=== PATIENT | male | born 1950 | race Caucasian/White ===

== ENCOUNTER 2025-02-14 09:00 | Outpatient (RCR) | payer BC, SELFPAY ==
--- NOTE | 2024-09-21 12:27 | ONC.NURNOTE ---
[facility] will need [facility] of one additional week they are able to ship capecitabine out today or tomorrow so he will have it when starts XRT on Wednesday Teaching planned for Wednesday with lab work next appts set up for lab and Jesus Dayo will see the dietitian at [facility]- they placed a referral
[2024-09-26 12:15] LABS: Hematocrit* 33.5 % (37.0-53.0); Hemoglobin* 11.4 gm/dL (13.5-17.5); Immature Granulocytes Abs Auto 0.12 K/uL (0.00-0.30); Immature Granulocytes Pct Auto 1.9 %; Lymphocytes Absolute Auto 1.55 K/uL (0.90-2.90); Mean Corpuscular HGB Conc 34 gm/dL (32-36); Mean Corpuscular Hemoglobin 34 pg (26-34); Mean Corpuscular Volume 99 fL (80-100); RDW Coefficient of Variation % 13.7 % (11.5-15.5); Red Blood Count* 3.39 m/uL (4.30-5.90); White Blood Count* 6.27 K/uL (4.50-11.00)
[2024-09-26 12:16] LABS: Slide Review Reflex No
[2024-09-26 12:32] LABS: Albumin* 3.5 g/dL (3.3-5.0); Chloride* 93 mmol/L (96-114); Potassium* 4.1 mmol/L (3.6-5.1); Sodium* 126 mmol/L (135-149)
[2024-09-26 12:35] LABS: Alkaline Phosphatase* 85 U/L (40-150); Anion Gap 7 mEq/L (7-15); Bilirubin Total* 0.7 mg/dL (0.1-1.5); Blood Urea Nitrogen* 11 mg/dL (7-30); Calcium* 8.6 mg/dL (8.4-10.6); Carbon Dioxide* 26 mmol/L (20-32); Creatinine* 0.7 mg/dL (0.5-1.5); Est. Creatinine Clearance* 68.57; Estimated Glomerular Filt Rate 97 ml/min; Glucose* 185 mg/dL (60-115); Total Protein* 7.2 g/dL (6.0-8.3)
[2024-09-26 12:36] LABS: Alanine Aminotransferase* 17 U/L (4-50); Aspartate Amino Transferase* 31 U/L (12-35)
--- NOTE | 2024-09-26 14:20 | ONC.NURNOTE ---
teaching with patient and María- 60 min considerable time spend and reviewed possible side effects, home management of diarrhea, mouth sores and hand/foot erythema ER with fever over 100.4, calling with increase in loose watery stools, 3 or more/day, imodium dosing, safe handling and disposal, information on smoking cessation discussed- handouts given- patient smokes about 20 cigarettes a day- but thinks he can start decreasing # smoked to start with 18 max/day also discussed alcohol intake- of 6 beers/day average- to try NA beer instead during his treatment- discussed impact on his liver enzymes patient enjoys a hot tub and was also advised against it until he has completed treatment and his rectal area is well healed. Patient took his first dose here, after eating a snack first due to late start- his 2nd dose will be about 10 hours later at 11 pm tonite, followed by 3rd dose around 9 am reviewed dosing schedule with and patient- using teachback method questions addressed- MAGDALENA consents reviewed and signed
[2024-09-27 12:25] LABS: Carcinoembryonic Antigen 11.8 ng/mL
--- NOTE | 2024-09-28 10:05 | ONC.NURNOTE ---
Spoke to pt's María to follow up starting the Capecitabine. She states it is going well and pt has no side effects at this time. He is taking the capecitabine at 0730 prior to radiation and at 1930. Instructed them to call [facility] if they have any questions or concerns. She verbalized understanding of plan of care.
[2024-10-02 09:57] LABS: Sodium* 129 mmol/L (135-149)
--- NOTE | 2024-10-02 14:09 | ONC.NURNOTE ---
Sodium results called to /pt he is taking his salt tablets TID reviewed capecitabine tolerance no diarrhea no hand/feet redness, and no mouth sores doing his best to get enough liquids in with his wifes encouragement has reduced beer intake by 4 cans /day making a conscious effort to reduce the # of cigarettes daily has appts for next week
--- NOTE | 2024-10-05 13:52 | ONC.NURNOTE ---
capecitabine symptom check in reports 1 episode of looser stool last night, nothing further today no redness, pain in plantar bae area no mouth sores denies any questions
[2024-10-11 10:27] LABS: Hematocrit* 29.8 % (37.0-53.0); Hemoglobin* 10.0 gm/dL (13.5-17.5); Immature Granulocytes Pct Auto 1.1 %; Mean Corpuscular HGB Conc 34 gm/dL (32-36); Mean Corpuscular Hemoglobin 35 pg (26-34); Mean Corpuscular Volume 103 fL (80-100); RDW Coefficient of Variation % 15.5 % (11.5-15.5); Red Blood Count* 2.89 m/uL (4.30-5.90); White Blood Count* 3.51 K/uL (4.50-11.00)
[2024-10-11 10:39] LABS: Immature Granulocytes Abs Auto 0.00 K/uL (0.00-0.30); Lymphocytes Absolute Auto 1.00 K/uL (0.90-2.90)
[2024-10-11 10:40] LABS: Slide Review Reflex No
[2024-10-11 10:41] LABS: Albumin* 3.3 g/dL (3.3-5.0); Chloride* 98 mmol/L (96-114); Potassium* 4.1 mmol/L (3.6-5.1); Sodium* 130 mmol/L (135-149)
[2024-10-11 10:44] LABS: Alanine Aminotransferase* 13 U/L (4-50); Alkaline Phosphatase* 72 U/L (40-150); Anion Gap 5 mEq/L (7-15); Aspartate Amino Transferase* 26 U/L (12-35); Bilirubin Total* 0.6 mg/dL (0.1-1.5); Blood Urea Nitrogen* 16 mg/dL (7-30); Calcium* 8.5 mg/dL (8.4-10.6); Carbon Dioxide* 27 mmol/L (20-32); Creatinine* 0.7 mg/dL (0.5-1.5); Est. Creatinine Clearance* 68.57; Estimated Glomerular Filt Rate 97 ml/min; Glucose* 108 mg/dL (60-115); Total Protein* 6.9 g/dL (6.0-8.3)
[2024-10-26 09:02] LABS: Hematocrit* 29.7 % (37.0-53.0); Hemoglobin* 9.9 gm/dL (13.5-17.5); Immature Granulocytes Pct Auto 1.3 %; Mean Corpuscular HGB Conc 33 gm/dL (32-36); Mean Corpuscular Hemoglobin 36 pg (26-34); Mean Corpuscular Volume 107 fL (80-100); RDW Coefficient of Variation % 18.7 % (11.5-15.5); Red Blood Count* 2.79 m/uL (4.30-5.90); White Blood Count* 2.97 K/uL (4.50-11.00)
[2024-10-26 09:32] LABS: Albumin* 3.6 g/dL (3.3-5.0); Chloride* 103 mmol/L (96-114); Potassium* 4.2 mmol/L (3.6-5.1); Sodium* 136 mmol/L (135-149)
[2024-10-26 09:35] LABS: Alanine Aminotransferase* 14 U/L (4-50); Alkaline Phosphatase* 64 U/L (40-150); Anion Gap 8 mEq/L (7-15); Aspartate Amino Transferase* 31 U/L (12-35); Bilirubin Total* 0.6 mg/dL (0.1-1.5); Blood Urea Nitrogen* 15 mg/dL (7-30); Calcium* 8.7 mg/dL (8.4-10.6); Carbon Dioxide* 25 mmol/L (20-32); Creatinine* 0.7 mg/dL (0.5-1.5); Est. Creatinine Clearance* 67.83; Estimated Glomerular Filt Rate 97 ml/min; Glucose* 112 mg/dL (60-115); Total Protein* 7.2 g/dL (6.0-8.3)
[2024-10-26 09:36] LABS: Immature Granulocytes Abs Auto 0.00 K/uL (0.00-0.30); Lymphocytes Absolute Auto 0.70 K/uL (0.90-2.90); Slide Review Reflex No
[2024-11-15 08:48] LABS: Hematocrit* 32.6 % (37.0-53.0); Hemoglobin* 10.9 gm/dL (13.5-17.5); Immature Granulocytes Pct Auto 1.0 %; Mean Corpuscular HGB Conc 33 gm/dL (32-36); Mean Corpuscular Hemoglobin 36 pg (26-34); Mean Corpuscular Volume 109 fL (80-100); RDW Coefficient of Variation % 18.1 % (11.5-15.5); Red Blood Count* 3.00 m/uL (4.30-5.90); White Blood Count* 3.13 K/uL (4.50-11.00)
[2024-11-15 08:53] LABS: Immature Granulocytes Abs Auto 0.00 K/uL (0.00-0.30); Lymphocytes Absolute Auto 0.70 K/uL (0.90-2.90); Slide Review Reflex No
[2024-11-15 09:01] LABS: Albumin* 3.7 g/dL (3.3-5.0); Chloride* 101 mmol/L (96-114); Potassium* 4.1 mmol/L (3.6-5.1); Sodium* 134 mmol/L (135-149)
[2024-11-15 09:04] LABS: Alanine Aminotransferase* 15 U/L (4-50); Alkaline Phosphatase* 66 U/L (40-150); Anion Gap 5 mEq/L (7-15); Aspartate Amino Transferase* 30 U/L (12-35); Bilirubin Total* 0.7 mg/dL (0.1-1.5); Blood Urea Nitrogen* 10 mg/dL (7-30); Calcium* 8.7 mg/dL (8.4-10.6); Carbon Dioxide* 28 mmol/L (20-32); Creatinine* 0.8 mg/dL (0.5-1.5); Est. Creatinine Clearance* 66.24; Estimated Glomerular Filt Rate 93 ml/min; Glucose* 162 mg/dL (60-115); Total Protein* 7.4 g/dL (6.0-8.3)
[2024-11-15 09:11] VITALS: BP 123/67; PULSE 66; RESP 16; TEMP 36.7; O2SAT 96
--- NOTE | 2024-11-15 09:30 | CRLHL7_ITS ---
For Patients: As a result of the Century Cures Act, medical imaging exams and procedure reports are released immediately into your electronic medical record. You may view this report before your referring provider. If you have questions, please contact your health care provider. Indication: PICC line placement confirmation Comparison: None available. Technique: Single AP view chest Findings: Satisfactory positioning of right-sided PICC line with the tip just at the cavoatrial junction. Diffusely increased interstitial markings commensurate with pulmonary edema with basilar atelectasis and/or parenchymal scar. No pneumothorax or pleural effusion. The cardiomediastinal silhouette is within normal limits. The bony thorax is grossly intact. Impression: 1. Satisfactory position of right-sided PICC line with the tip just at the cavoatrial junction. 2. Diffusely increased interstitial markings commensurate with pulmonary edema. Dictated by Shayne Law MD @ 11/15/2024 10:13:25 AM (Electronically Signed)
[2024-11-15 10:40] VITALS: BP 124/66; PULSE 58; RESP 16; TEMP 36.6; O2SAT 96
[2024-11-15] MEDS: dexAMETHasone 20 MG in 0.9 % SODIUM CHLORIDE 100 ml 100 ML 408 MG IVPB (11:05)
[2024-11-15] MEDS: 5 % DEXTROSE 250 ML IV (14:16)
[2024-11-15] MEDS: SODIUM CHLORIDE 0.9 % (FLUSH) 10 ML SYRINGE IVF (14:17)
--- NOTE | 2024-11-16 13:18 | ONC.NURNOTE ---
Chemo follow up call; spoke with María reports no nausea reports heart burn last night, but nothing further today taking capecitabine as prescribed has not taken any home antiemetics reviewed need to start prochlorperzine today, tomorrow and if needed on Wednesday per schedule on given eating meals and drinking fluids taking dexamethasone as directed today reports facial flushing and no temps- flushing may be from dexamethasone
[2024-11-22 13:07] LABS: Hematocrit* 28.2 % (37.0-53.0); Hemoglobin* 9.6 gm/dL (13.5-17.5); Immature Granulocytes Pct Auto 0.8 %; Lymphocytes Absolute Auto 0.80 K/uL (0.90-2.90); Mean Corpuscular HGB Conc 34 gm/dL (32-36); Mean Corpuscular Hemoglobin 37 pg (26-34); Mean Corpuscular Volume 108 fL (80-100); RDW Coefficient of Variation % 17.0 % (11.5-15.5); Red Blood Count* 2.61 m/uL (4.30-5.90); White Blood Count* 3.91 K/uL (4.50-11.00)
[2024-11-22 13:08] LABS: Immature Granulocytes Abs Auto 0.00 K/uL (0.00-0.30)
[2024-11-22 13:09] LABS: Slide Review Reflex No
[2024-12-05 08:31] LABS: Hematocrit* 28.6 % (37.0-53.0); Hemoglobin* 9.7 gm/dL (13.5-17.5); Immature Granulocytes Pct Auto 0.3 %; Mean Corpuscular HGB Conc 34 gm/dL (32-36); Mean Corpuscular Hemoglobin 37 pg (26-34); Mean Corpuscular Volume 109 fL (80-100); RDW Coefficient of Variation % 17.5 % (11.5-15.5); Red Blood Count* 2.62 m/uL (4.30-5.90); White Blood Count* 2.94 K/uL (4.50-11.00)
[2024-12-05 08:32] LABS: Immature Granulocytes Abs Auto 0.00 K/uL (0.00-0.30); Lymphocytes Absolute Auto 0.60 K/uL (0.90-2.90); Slide Review Reflex No
[2024-12-05] MEDS: SODIUM CHLORIDE 0.9 % (FLUSH) 10 ML SYRINGE IVF ×3 (08:32→13:05)
[2024-12-05 08:44] LABS: Albumin* 3.6 g/dL (3.3-5.0); Chloride* 99 mmol/L (96-114)
[2024-12-05 08:45] LABS: Potassium* 3.9 mmol/L (3.6-5.1); Sodium* 131 mmol/L (135-149)
[2024-12-05 08:47] LABS: Alanine Aminotransferase* 16 U/L (4-50); Anion Gap 5 mEq/L (7-15); Aspartate Amino Transferase* 30 U/L (12-35); Blood Urea Nitrogen* 9 mg/dL (7-30); Carbon Dioxide* 27 mmol/L (20-32); Creatinine* 0.6 mg/dL (0.5-1.5); Est. Creatinine Clearance* 67.74; Estimated Glomerular Filt Rate 101 ml/min
[2024-12-05 08:48] LABS: Alkaline Phosphatase* 54 U/L (40-150); Bilirubin Total* 0.6 mg/dL (0.1-1.5); Calcium* 8.7 mg/dL (8.4-10.6); Glucose* 133 mg/dL (60-115); Total Protein* 6.5 g/dL (6.0-8.3)
[2024-12-05] MEDS: 5 % DEXTROSE 250 ML IV (10:17)
[2024-12-05] MEDS: dexAMETHasone 20 MG in 0.9 % SODIUM CHLORIDE 100 ml 100 ML 408 MG IVPB (10:25)
[2024-12-06 18:42] LABS: Carcinoembryonic Antigen 9.6 ng/mL
[2024-12-12] MEDS: SODIUM CHLORIDE 0.9 % (FLUSH) 10 ML SYRINGE IVF (09:04)
[2024-12-26] MEDS: SODIUM CHLORIDE 0.9 % (FLUSH) 10 ML SYRINGE IVF ×2 (08:45→13:48)
[2024-12-26 09:16] LABS: Hematocrit* 28.0 % (37.0-53.0); Hemoglobin* 9.3 gm/dL (13.5-17.5); Immature Granulocytes Pct Auto 1.3 %; Mean Corpuscular HGB Conc 33 gm/dL (32-36); Mean Corpuscular Hemoglobin 38 pg (26-34); Mean Corpuscular Volume 115 fL (80-100); RDW Coefficient of Variation % 17.6 % (11.5-15.5); Red Blood Count* 2.44 m/uL (4.30-5.90); White Blood Count* 3.20 K/uL (4.50-11.00)
[2024-12-26 09:18] LABS: Immature Granulocytes Abs Auto 0.00 K/uL (0.00-0.30); Lymphocytes Absolute Auto 0.60 K/uL (0.90-2.90)
[2024-12-26 09:19] LABS: Slide Review Reflex No
[2024-12-26 09:26] LABS: Chloride* 102 mmol/L (96-114)
[2024-12-26 09:27] LABS: Albumin* 3.3 g/dL (3.3-5.0); Potassium* 4.0 mmol/L (3.6-5.1); Sodium* 133 mmol/L (135-149)
[2024-12-26 09:29] LABS: Alanine Aminotransferase* 17 U/L (4-50); Anion Gap 4 mEq/L (7-15); Aspartate Amino Transferase* 33 U/L (12-35); Blood Urea Nitrogen* 11 mg/dL (7-30); Carbon Dioxide* 27 mmol/L (20-32); Creatinine* 0.8 mg/dL (0.5-1.5); Est. Creatinine Clearance* 71.13; Estimated Glomerular Filt Rate 93 ml/min
[2024-12-26 09:30] LABS: Alkaline Phosphatase* 58 U/L (40-150); Bilirubin Total* 0.5 mg/dL (0.1-1.5); Calcium* 8.7 mg/dL (8.4-10.6); Glucose* 117 mg/dL (60-115); Total Protein* 6.6 g/dL (6.0-8.3)
[2024-12-26] MEDS: 5 % DEXTROSE 250 ML IV (11:09)
[2024-12-26] MEDS: dexAMETHasone 20 MG in 0.9 % SODIUM CHLORIDE 100 ml 100 ML 408 MG IVPB (11:12)
[2025-01-02 09:09] VITALS: BP 108/63; PULSE 82; RESP 16; TEMP 36.6; O2SAT 94
[2025-01-15 08:01] LABS: Hematocrit* 28.8 % (37.0-53.0); Hemoglobin* 9.8 gm/dL (13.5-17.5); Immature Granulocytes Pct Auto 0.8 %; Mean Corpuscular HGB Conc 34 gm/dL (32-36); Mean Corpuscular Hemoglobin 39 pg (26-34); Mean Corpuscular Volume 115 fL (80-100); RDW Coefficient of Variation % 17.4 % (11.5-15.5); Red Blood Count* 2.50 m/uL (4.30-5.90); White Blood Count* 3.53 K/uL (4.50-11.00)
[2025-01-15 08:03] LABS: Immature Granulocytes Abs Auto 0.00 K/uL (0.00-0.30); Lymphocytes Absolute Auto 0.70 K/uL (0.90-2.90); Slide Review Reflex No
[2025-01-15 08:15] LABS: Albumin* 3.4 g/dL (3.3-5.0); Chloride* 101 mmol/L (96-114); Potassium* 4.0 mmol/L (3.6-5.1); Sodium* 131 mmol/L (135-149)
[2025-01-15 08:18] LABS: Alanine Aminotransferase* 18 U/L (4-50); Alkaline Phosphatase* 56 U/L (40-150); Anion Gap 3 mEq/L (7-15); Aspartate Amino Transferase* 36 U/L (12-35); Bilirubin Total* 0.6 mg/dL (0.1-1.5); Blood Urea Nitrogen* 7 mg/dL (7-30); Carbon Dioxide* 27 mmol/L (20-32); Creatinine* 0.7 mg/dL (0.5-1.5); Est. Creatinine Clearance* 71.13; Estimated Glomerular Filt Rate 97 ml/min; Total Protein* 6.7 g/dL (6.0-8.3)
[2025-01-15 08:19] LABS: Calcium* 8.8 mg/dL (8.4-10.6); Glucose* 219 mg/dL (60-115)
[2025-01-15] MEDS: SODIUM CHLORIDE 0.9 % (FLUSH) 10 ML SYRINGE IVF ×2 (09:15→12:27)
[2025-01-15] MEDS: 5 % DEXTROSE 250 ML IV (09:15)
[2025-01-15] MEDS: dexAMETHasone 20 MG in 0.9 % SODIUM CHLORIDE 100 ml 100 ML 408 MG IVPB (09:51)
[2025-01-16 20:16] LABS: Carcinoembryonic Antigen 11.1 ng/mL
--- NOTE | 2025-03-07 10:53 | ONC.NURNOTE ---
Addendum entered by Shirin Jasso RN 03/12/25 13:43: Pt's spouse called back and pt had a scope done on 03/02/25 at [place], requested pt to have records sent to [facility]. RN to cancel MRI as indicated in previous note by Yanni GIRALDO. Addendum entered by Yanni Lozano RN 03/07/25 15:17: After discussion with Dr. Lee, she states that it is okay to cancel the MRI if the scope is being done. LMOM for spouse to call back with this answer. Nursing to cancel the MRI once the scope is scheduled. Original Note: Patient's spouse called into the office asking for the following to be clarified. Radiation is wanting a CT of chest, but oncology wants CT of chest abdomen and pelvis. These are scheduled in two different places, she was told to keep the chest, abdomen and pelvis and let radiation know that this is occurring in [place]. The surgeon ordered a scope to be done in May, and oncology has a MRI of the abdomen ordered. Surgeon noted that the scope will give a better picture, so spouse is wondering about cancelling the MRI. Nursing to ask oncologist today and call spouse back.
== END 2025-03-18 23:59 | disposition home or self-care (01) ==
LOC: CCIC 09:00
PROVIDERS: Clinical Nurse Specialist; PCP Family Medicine; Referring Provider Family Medicine; Visit Provider Internal Medicine Hematology & Oncology
DX: C20 Malignant neoplasm of rectum (principal); C34.12 Malignant neoplasm of upper lobe, left bronchus or lung; Z87.891 Personal history of nicotine dependence
CPT/HCPCS: 36415; 36573; 36591; 36592; 80053; 82378; 84295; 85025; 96367; 96375; 96413; 96415; 99202; 99205; 99211; 99215; G0463; A4221; C1751; J1100; J2469; J7050; J9263